=== PATIENT | female | born 1980 | race Two or more races ===

== ENCOUNTER 2024-09-29 06:57 | Emergency (ER) | payer MEDICAID, SELFPAY ==
[2024-09-29 06:58] VITALS: BMI 30.7
[2024-09-29 07:05] VITALS: BP 115/80; PULSE 80; RESP 18; TEMP 36.5; O2SAT 98
[2024-09-29] MEDS: KETOROLAC INJ 60 MG/2 ML VIAL 30 MG IM (07:37)
--- NOTE | 2024-09-29 07:38 | EDNOTE_ITS ---
ED Abdominal Pain RME/HPI General Chief Complaint: Abdominal Pain Stated complaint: RLQ ABD PAIN Time seen by provider: 09/29/24 07:24 Arrival date/time: 09/29/24 06:57 Limitations: no limitations RME / HPI RME / HPI narrative: 44-year-old female presents to urgent care with complaint of right lower quadrant pain that radiates to the mid axillary line. This began 2 days ago. Denies vomiting and denies diarrhea. Also complains of pain upon urination. MD complaint: abdominal pain Onset (ago): day(s) (2 days) Consistency: intermittent Related Data Previous Rx's ?Medication ?Instructions ?Recorded acetaminophen 325 mg capsule 975 mg (3 x 325 mg) PO Q6 H PRN 12/20/19 pain #30 caps doxycycline monohydrate 100 mg 100 mg PO BID #20 tabs 09/29/24 tablet doxycycline monohydrate 100 mg 100 mg PO BID #20 tabs 09/29/24 tablet phenazopyridine 200 mg tablet 200 mg PO TID 6 doses #6 tabs 09/29/24 (Pyridium) phenazopyridine 200 mg tablet 200 mg PO TID 6 doses #6 tabs 09/29/24 (Pyridium) phenazopyridine 200 mg tablet 200 mg PO TID BURNING UP ON 09/29/24 (Pyridium) URINATION 6 doses #6 tabs Allergies Allergy/AdvReac Type Severity Reaction Status Date / Time Penicillins Allergy Unknown UNKNOWN Verified 09/29/24 07:01 PER PT Review of Systems Constitutional Constitutional: Reports system reviewed and no additional complaints, except as documented Eyes Eyes: Reports system reviewed and no additional complaints, except as documented, Denies dry eyes, Denies exophthalmos and Reports floaters Cardiovascular Cardiovascular: Denies chest pain with activity and Denies claudication ED Exam Narrative Physical exam: The abdomen is tender to palpation at the right lower quadrant. Negative for rebound tenderness. Patient does not guard and there is no apparent masses in the abdomen. Patient is able to hop up and down to 5 times without a grimace or pain. Upon hopping patient complains of pain she describes as dull to the right lower quadrant. General Limitations: Present no limitations General appearance: Present alert and in no apparent distress Head Head exam: Present atraumatic Eye Eye exam: Present normal appearance and EOMI ENT ENT exam: Present normal exam, normal oropharynx and mucous membranes moist Neck Neck exam: Present normal inspection, full ROM and trachea midline Chest Chest inspection: Present normal inspection and symmetric chest wall rise Respiratory Respiratory exam: Present normal lung sounds bilaterally Cardiovascular Cardiovascular exam: Present regular rate, normal rhythm and normal heart sounds Abdominal Exam Abdominal exam: Present soft, tenderness (Mildly tender is the right lower quadrant negative for rebound tenderness) and normal bowel sounds Extremities Exam Extremities exam: Present normal inspection and full ROM Back Exam Back exam: Present normal inspection and full ROM Neurological Exam Neurological exam: Present alert and oriented X3 Psychiatric Psychiatric exam: Present normal affect and normal mood Skin Skin exam: Present warm, dry, intact and normal color Course Course Course Narrative: CBC, CMP, hCG qualitative, lipase, urinalysis, Toradol 30 mg IM. Quality Measures none Orders Category Date Time Status CBC Stat Lab 09/29/24 08:16 Completed Comprehensive Metabolic Panel Stat Lab 09/29/24 08:16 Completed HCG Qualitative,Urine Stat Lab 09/29/24 07:36 Completed Lipase Stat Lab 09/29/24 08:16 Completed Urinalysis Stat Lab 09/29/24 07:36 Completed Ketorolac Inj [Toradol Inj] Med 09/29/24 07:19 Discontinued 30 mg IM X1 ONE cefTRIAXone [Rocephin] 1,000 mg Med 09/29/24 09:33 Discontinued Lidocaine 1% 20 ml [Xylocaine 1% 20 ML] 2.1 ml IM X1 Done Vital Signs Vital signs: Vital Signs Temperature 97.7 F 09/29/24 07:05 Pulse Rate 80 09/29/24 07:05 Respiratory Rate 18 09/29/24 07:05 Blood Pressure 115/80 09/29/24 07:05 Pulse Oximetry (%) 98 09/29/24 07:05 Oxygen Delivery Method Room Air 09/29/24 07:05 Pulse ox is 98% room air Abdominal Pain MDM MDM Narrative MDM Narrative:: Patient has a urinary tract infection and she will be given a gram of Rocephin. She will then be discharged in no apparent distress. Patient is to follow-up primary care physician within 1 week of today's date or sooner if worse. Patient will have cephalexin sent to the pharmacy of her choice as well as Pyridium. Patient data External records reviewed:: Other (specify) (N/A) Clinical information provided by:: patient Social determinants that could affect healthcare access:: none (N/A) Patient has the following chronic illnesses:: No chronic illness How is presenting disease/condition affected by chronic disease/condition?: no chronic disease Evaluation data The following diagnostics were reviewed and interpreted by me:: lab results (Urinalysis demonstrates a urinary tract infection) Lab and/or radiology exams considered but not ordered:: N/A Interpretation Summary: UTI Medications / Prescriptions Medications or Prescriptions considered but not ordered:: N/A Medication administrations:: Medication Administration History Discontinued Medications Ceftriaxone Sodium 1,000 mg/ (Lidocaine HCl 2.1 ml) 0 mg IM X1 ONE Stop: 09/29/24 09:34 Last Admin: 09/29/24 09:48 Dose: 1,000 mg Documented By: SHELBY Ketorolac Tromethamine (Ketorolac Inj 60 Mg/2 Ml Vial) 30 mg IM X1 ONE Stop: 09/29/24 07:20 Last Admin: 09/29/24 07:37 Dose: 30 mg Documented By: EF DONE Consultations Consultation(s) initiated? (list below): No Diagnosis Differential diagnosis abdominal pain: acute appendicitis, calculus of kidney and gastroenteritis Most likely diagnosis given after review of the tests above:: Urinary tract infection Admission Indicated Admission indicated?: not indicated Explain why admission is indicated or not indicated:: N/A Admission Request Was there a request for admission?: No Disposition Plan Disposition Plan: Discharge Discharge Attestation Discharge Attestation: The patient and all family members were given an opportunity to ask questions and understood the discharge instructions. Discharge instructions specifically effects, indications for sooner follow up or return to the emergency department, and the expected course of current diagnosis. Patient condition: Stable Discharge Plan Plan Patient Disposition: HOME (Self Care) Discharge Disposition comment: Discharge in no apparent distress Patient condition on transfer: Stable Prescriptions/Referrals Prescriptions/Med Rec: New doxycycline monohydrate 100 mg tablet 100 mg PO BID Qty: 20 0RF phenazopyridine [Pyridium] 200 mg tablet 200 mg PO TID Qty: 6 0RF doxycycline monohydrate 100 mg tablet 100 mg PO BID Qty: 20 0RF phenazopyridine [Pyridium] 200 mg tablet 200 mg PO TID Qty: 6 0RF phenazopyridine [Pyridium] 200 mg tablet 200 mg PO TID Qty: 6 0RF No Action acetaminophen 325 mg capsule 975 mg PO Q6H PRN (Reason: pain) Qty: 30 0RF Referrals: Beni Wren MD [Primary Care Provider] - In 1 week Problem List Clinical Impression: Urinary tract infection Patient/Caregiver Discharge Instructions Discharge Activity: activity as tolerated Print Language: Malay Stand Alone Forms: [employer] Award Info., Work/School Release, Patient Portal Info Letter PA/AUDIO NARRATOR Supervising Physician PA/AUDIO NARRATOR Supervising Physician: GRABIEL
[2024-09-29 08:12] LABS: Collection Type, Urine Clean Catch
[2024-09-29 08:29] LABS: Basophils # (Auto) 0.0 Thou/mm3 (0.0-0.2); Basophils % (Auto) 0 % (0-2.5); Eosinophils # (Auto) 0.1 Thou/mm3 (0.0-0.5); Eosinophils % (Auto) 1 % (0-10); Hematocrit 38.5 % (36.0-46.0); Hemoglobin 13.3 g/dL (12.0-16.0); Immature Granulocytes Auto 0.05 Thou/mm3 (0.00-0.00); Lymphocytes # (Auto) 1.9 Thou/mm3 (1.0-4.8); Lymphocytes % (Auto) 15 % (10-50); Mean Corpuscular HGB Conc 34.5 g/dl (31.0-37.0); Mean Corpuscular Hemoglobin 30.2 pg (25.0-35.0); Mean Corpuscular Volume 88 fL (80-100); Monocytes # (Auto) 1.1 Thou/mm3 (0.0-0.8); Monocytes % (Auto) 9 % (0-12); Neutrophils # (Auto) 9.4 Thou/mm3 (1.8-7.7); Neutrophils % (Auto) 75 % (37-80); Nucleated Red Blood Cell # 0.00 Thou/mm3 (0.00-0.00); Nucleated Red Blood Cell % 0 /100 WBC (0); Platelet Count 175 Thou/mm3 (140-440); RDW Standard Deviation 42.6 fL (36.4-46.3); Red Blood Count 4.40 Miln/mm3 (4.00-5.20); White Blood Count 12.6 Thou/mm3 (3.6-11.0)
[2024-09-29 08:30] LABS: Bilirubin,Urine Negative (Negative); Blood,Urine Trace (Negative); Budding Yeast,Urine Present; Color,Urine Lt-Yellow (Lt Yel-Yel); Glucose, Urine Negative (Negative); HCG Qualitative,Urine Negative; Ketones,Urine Negative (Negative); Leukocyte Esterase,Urine Positive (Negative); Nitrite,Urine Negative (Negative); PH,Urine 7.0 (5.0-7.0); Protein,Urine Trace (Neg - Trace); RBC,Urine 24 /hpf (0-3); Specific Gravity,Urine 1.013 (1.001-1.035); Squamous Epithelial Cell,Urine 1 /hpf (0-5); Urobilinogen,Urine Negative mg/dL (0.0-1.0); WBC,Urine 297 /hpf (0-5)
[2024-09-29 08:53] LABS: Alanine Aminotransferase 14 U/L (10-49); Albumin, Serum 4.1 gm/dL (3.5-5.0); Albumin/Globulin Ratio 1.4 (1.2-2.2); Alkaline Phosphatase 72 U/L (46-116); Anion Gap 9 (7-16); Aspartate Amino Transferase 24 U/L (0-34); BUN/Creatinine Ratio 16 Ratio (12-20); Bilirubin,Total 1.0 mg/dL (0.3-1.2); Blood Urea Nitrogen 18 mg/dL (9-23); Calcium 9.2 mg/dL (8.3-10.6); Calcium (Corrected) 9.2 mg/dL (8.5-10.1); Carbon Dioxide 27.0 mMol/L (20.0-31.0); Chloride 103 mMol/L (98-107); Creatinine (Component) 1.1 mg/dL (0.6-1.3); Estimated Creatinine Clearance 72.2 mL/min (>60); Globulin 3.0 gm/dL (2.3-3.5); Glucose 100 mg/dL (74-106); Lipase 47 U/L (12-53); Osmolality,Calculated 279 (275-295); Potassium 4.6 mMol/L (3.4-5.1); Sodium 139 mMol/L (136-145); Total Protein 7.1 gm/dL (5.7-8.2); eGFR > 60 See Note
[2024-09-29 08:55] LABS: Clarity,Urine Hazy (Clear/Hazy)
[2024-09-29] MEDS: cefTRIAXone 1,000 MG, LIDOCAINE 1% 20 ML 2.1 ML IM (09:48)
== END 2024-09-29 09:55 | disposition home or self-care (01) ==
PROVIDERS: Emergency Provider Physician Assistant; PCP Family Medicine
DX: N39.0 Urinary tract infection, site not specified (principal)
CPT/HCPCS: 36415; 80053; 81001; 81025; 83690; 85025; 96372; 99283; J0696; J1885; J3490

== ENCOUNTER 2025-03-01 16:30 | Emergency (ER) | payer MEDICAID, SELFPAY ==
--- NOTE | 2025-03-01 16:34 | EKG_ITS ---
[facility] Test Date: 2025-03-01 Pat Name: DAVONTE GUSMAN Department: Room: - Gender: Female Linotyper: : 1980 Requested By: Shaw Coley Order Number: [id number] Reading MD: Shaw Coley Measurements Intervals [place] Rate: 85 P: 22 NV: 138 QRS: 10 QRSD: 87 T: 26 QT: 327 QTc: 389 Interpretive Statements SINUS RHYTHM Compared to ECG 05/06/2019 17:14:45 No significant changes /store/S0/[id number].pdf
[2025-03-01 16:40] VITALS: BP 132/91; PULSE 87; RESP 19; TEMP 36.7; O2SAT 97; BMI 32.3
--- NOTE | 2025-03-01 16:48 | XR_ITS ---
EXAMINATION: PA lateral chest 2 views TECHNIQUE: Upright PA lateral chest 2 views Date and time: March 01, 2025, 1701 hours, comparison May 06, 2019 INDICATIONS: Chest pain beginning last night. FINDINGS: Normal heart size Lungs are clear. The osseous structures are intact IMPRESSION: No active disease
--- NOTE | 2025-03-01 16:48 | PD.EDRME ---
Rapid Medical Screening Exam RME Arrival date/time: 03/01/25 16:30 44-year-old female presents to the Emergency Department for complaints of chest pain since yesterday Chief Complaint: Chest Pain Vital signs: Vital Signs Temperature 98.0 F 03/01/25 16:40 Pulse Rate 87 03/01/25 16:40 Respiratory Rate 19 03/01/25 16:40 Blood Pressure 132/91 H 03/01/25 16:40 Pulse Oximetry (%) 97 03/01/25 16:40 Oxygen Delivery Method Room Air 03/01/25 16:40 Vital signs reviewed by provider: Yes Exam: On exam patient well-appearing does not appear ill or toxic no acute distress Clinical Impression: Lab work imaging and EKG obtained
[2025-03-01 17:28] LABS: Basophils # (Auto) 0.0 Thou/mm3 (0.0-0.2); Basophils % (Auto) 0 % (0-2.5); Eosinophils # (Auto) 0.3 Thou/mm3 (0.0-0.5); Eosinophils % (Auto) 3 % (0-10); Hematocrit 37.7 % (36.0-46.0); Hemoglobin 12.5 g/dL (12.0-16.0); Immature Granulocytes Auto 0.02 Thou/mm3 (0.00-0.00); Lymphocytes # (Auto) 2.5 Thou/mm3 (1.0-4.8); Lymphocytes % (Auto) 29 % (10-50); Mean Corpuscular HGB Conc 33.2 g/dl (31.0-37.0); Mean Corpuscular Hemoglobin 29.6 pg (25.0-35.0); Mean Corpuscular Volume 89 fL (80-100); Monocytes # (Auto) 0.9 Thou/mm3 (0.0-0.8); Monocytes % (Auto) 10 % (0-12); Neutrophils # (Auto) 5.0 Thou/mm3 (1.8-7.7); Neutrophils % (Auto) 58 % (37-80); Nucleated Red Blood Cell # 0.00 Thou/mm3 (0.00-0.00); Nucleated Red Blood Cell % 0 /100 WBC (0); Platelet Count 224 Thou/mm3 (140-440); RDW Standard Deviation 43.0 fL (36.4-46.3); Red Blood Count 4.22 Miln/mm3 (4.00-5.20); White Blood Count 8.7 Thou/mm3 (3.6-11.0)
[2025-03-01 17:48] LABS: Alanine Aminotransferase 19 U/L (10-49); Albumin, Serum 4.2 gm/dL (3.5-5.0); Albumin/Globulin Ratio 1.4 (1.2-2.2); Alkaline Phosphatase 75 U/L (46-116); Anion Gap 10 (7-16); Aspartate Amino Transferase 25 U/L (0-34); BUN/Creatinine Ratio 13 Ratio (12-20); Bilirubin,Total 0.5 mg/dL (0.3-1.2); Blood Urea Nitrogen 15 mg/dL (9-23); Calcium 8.7 mg/dL (8.3-10.6); Calcium (Corrected) 8.7 mg/dL (8.5-10.1); Carbon Dioxide 25.9 mMol/L (20.0-31.0); Chloride 106 mMol/L (98-107); Creatinine (Component) 1.2 mg/dL (0.6-1.3); Estimated Creatinine Clearance 67.9 mL/min (>60); Globulin 3.1 gm/dL (2.3-3.5); Glucose 91 mg/dL (74-106); Lipase 63 U/L (12-53); Osmolality,Calculated 283 (275-295); Potassium 4.3 mMol/L (3.4-5.1); Sodium 142 mMol/L (136-145); Total Protein 7.3 gm/dL (5.7-8.2); Troponin I < 0.002 ng/mL (0.0-0.045); eGFR 57 See Note
[2025-03-01 18:21] LABS: HCG,Qualitative Serum Negative
--- NOTE | 2025-03-01 19:02 | EDNOTE_ITS ---
ED Chest Pain RME/HPI General Chief Complaint: Chest Pain Stated Complaint: H/A CHEST PAIN SINCE LAST PM Time Seen by Provider: 03/01/25 17:26 Arrival date/time: 03/01/25 16:30 RME / HPI RME / HPI narrative: 03/01/25 16:30 44-year-old female presents to the Emergency Department for complaints of chest pain since yesterday See [facility] for Dr. South's HPI Documentation. Exam: On exam patient well-appearing does not appear ill or toxic no acute distress Impression: Lab work imaging and EKG obtained Related Data Previous Rx's ?Medication ?Instructions ?Recorded acetaminophen 325 mg capsule 975 mg (3 x 325 mg) PO Q6 H PRN 12/20/19 pain #30 caps doxycycline monohydrate 100 mg 100 mg PO BID #20 tabs 09/29/24 tablet doxycycline monohydrate 100 mg 100 mg PO BID #20 tabs 09/29/24 tablet phenazopyridine 200 mg tablet 200 mg PO TID 6 doses #6 tabs 09/29/24 (Pyridium) phenazopyridine 200 mg tablet 200 mg PO TID 6 doses #6 tabs 09/29/24 (Pyridium) phenazopyridine 200 mg tablet 200 mg PO TID BURNING UP ON 09/29/24 (Pyridium) URINATION 6 doses #6 tabs Allergies Allergy/AdvReac Type Severity Reaction Status Date / Time Penicillins Allergy Unknown UNKNOWN Verified 03/01/25 16:32 PER PT Review of Systems Review of Systems Systems Reviewed: All systems reviewed, normal except as documented ED Exam Narrative Physical exam: See [facility] for Dr. South's Physical Exam Documentation. Course Quality Measures none Orders Category Date Time Status EKG (ED ONLY) *Do not use* NOW Care 03/01/25 16:34 Completed EKG (ED Only) Stat Exams 03/01/25 16:34 Draft XR chest 2V Stat Exams 03/01/25 16:48 Completed CBC Stat Lab 03/01/25 17:10 Completed Comprehensive Metabolic Panel Stat Lab 03/01/25 17:10 Completed HCG,Qualitative Serum Stat Lab 03/01/25 17:10 Completed Lipase Stat Lab 03/01/25 17:10 Completed Troponin I Stat Lab 03/01/25 17:10 Completed Vital Signs Vital signs: Vital Signs Temperature 98.0 F 03/01/25 16:40 Pulse Rate 87 03/01/25 16:40 Respiratory Rate 19 03/01/25 16:40 Blood Pressure 132/91 H 03/01/25 16:40 Pulse Oximetry (%) 97 03/01/25 16:40 Oxygen Delivery Method Room Air 03/01/25 16:40 Chest Pain MDM Narrative MDM Narrative:: This section includes all my notes and documentations, including HPI, PE, and ED course. Volodymyr South MD HPI: 44-year-old female here with left-sided chest pain and shoulder pain since yesterday after cleaning. Worse with left shoulder ROM. No other complaints. ROS: All negative except as documented in HPI. Physical Exam: General: Alert and oriented. No acute distress when remaining still. Eyes: Conjunctivae and lids clear. ENT: No nasal congestion. Neck: Supple. Heart: RRR. Lungs: No respiratory distress. Good air movement. No rhonchi, wheezing, rales. Chest: Palpation anteriorly left of the sternum reproduces her pain. Abdomen: Soft and nontender. Skin: Warm and dry. Neuro: Alert and oriented X 3. I reviewed all diagnostic test results: My interpretation of the EKG is NSR (85 bpm) with no ST-T changes. My interpretation of the chest x-ray is: NAD. Blood tests unremarkable. At this point, diagnoses include: Chest Wall Pain Recommended more outpatient cardiac workup. Based on my best medical judgment, made decision no further evaluation or treatment indicated at this time. Patient understands and agrees to the discharge instructions customized and printed, see below. Discharge instructions from Dr. South: 1. After extensive evaluation, there is no life-threatening condition.? Such as heart attack or pneumothorax (collapsed lung). 2. Your pain is originating from the chest wall and not from an internal organ.? The chest wall has many joints and muscles between the ribs, so sprains and strains are common.?? 3. Apply ice or heat if helpful.? Tylenol/ibuprofen as needed. 4. See a private doctor this week for recheck. To make sure there is no serious underlying heart condition, ask to help you get more tests for your heart that cannot be done here in the ER.? Such as Holter Monitor (cardiac monitoring at home from a day to even a month), heart stress test (on treadmill or with medication), echocardiogram (imaging of your heart structures), heart catherization (checking for blockages in your heart arteries), and a referral to see a Glassware Maker Demonstrator.? 5. Seek immediate medical care with worsening or with any concerns.?? Volodymyr South MD Patient data External records reviewed:: [facility] previous records (Reviewed prior ED records from 09/29/24. Patient was seen for Urinary tract infection.) Clinical information provided by:: patient Social determinants that could affect healthcare access:: none Patient has the following chronic illnesses:: None reported. How is presenting disease/condition affected by chronic disease/condition?: no chronic disease Evaluation data The following diagnostics were reviewed and interpreted by me:: lab results, radiology exam(s) and EKG tracing(s) Lab and/or radiology exams considered but not ordered:: None Interpretation Summary: I reviewed all diagnostic test results: My interpretation of the EKG is NSR (85 bpm) with no ST-T changes. My interpretation of the chest x-ray is: NAD. Blood tests unremarkable. Medications / Prescriptions Medications or Prescriptions considered but not ordered:: Noen Medication administrations:: None Consultations Consultation(s) initiated? (list below): No Diagnosis Chest Pain Differential Diagnosis: pneumothorax, stable angina, unstable angina pectoris, atypical chest pain, st elevation myocardial infarction, costochondritis and chest pain Most likely diagnosis given after review of the tests above:: Chest Wall Pain Admission Indicated Admission indicated?: not indicated Explain why admission is indicated or not indicated:: With no condition needing emergent intervention, there was no indication for admission. Admission Request Was there a request for admission?: No Disposition Plan Disposition Plan: Discharge Discharge Attestation Discharge Attestation: The patient and all family members were given an opportunity to ask questions and understood the discharge instructions. Discharge instructions specifically effects, indications for sooner follow up or return to the emergency department, and the expected course of current diagnosis. Patient condition: Stable Discharge Plan Plan Patient Disposition: HOME (Self Care) Prescriptions/Referrals Prescriptions/Med Rec: No Action acetaminophen 325 mg capsule 975 mg PO Q6H PRN (Reason: pain) Qty: 30 0RF doxycycline monohydrate 100 mg tablet 100 mg PO BID Qty: 20 0RF phenazopyridine [Pyridium] 200 mg tablet 200 mg PO TID Qty: 6 0RF doxycycline monohydrate 100 mg tablet 100 mg PO BID Qty: 20 0RF phenazopyridine [Pyridium] 200 mg tablet 200 mg PO TID Qty: 6 0RF phenazopyridine [Pyridium] 200 mg tablet 200 mg PO TID Qty: 6 0RF Referrals: Beni Wren MD [Primary Care Provider, Family Practice] - In 1 week Problem List Clinical Impression: Chest wall pain Patient/Caregiver Discharge Instructions Discharge Activity: activity as tolerated Education Materials: ED Chest Wall Strain (Child) Additional Instructions: Discharge instructions from Dr. South: 1. After extensive evaluation, there is no life-threatening condition.? Such as heart attack or pneumothorax (collapsed lung). 2. Your pain is originating from the chest wall and not from an internal organ.? The chest wall has many joints and muscles between the ribs, so sprains and strains are common.?? 3. Apply ice or heat if helpful.? Tylenol/ibuprofen as needed. 4. See a private doctor this week for recheck. To make sure there is no serious underlying heart condition, ask to help you get more tests for your heart that cannot be done here in the ER.? Such as Holter Monitor (cardiac monitoring at home from a day to even a month), heart stress test (on treadmill or with medication), echocardiogram (imaging of your heart structures), heart catherization (checking for blockages in your heart arteries), and a referral to see a Glassware Maker Demonstrator.? 5. Seek immediate medical care with worsening or with any concerns.?? Print Language: Mohawk Stand Alone Forms: [employer] Award Info., Patient Portal Info Letter
== END 2025-03-01 19:11 | disposition home or self-care (01) ==
PROVIDERS: Nurse Practitioner Primary Care; Emergency Provider Emergency Medicine; PCP Family Medicine
DX: R07.89 Other chest pain (principal)
CPT/HCPCS: 36415; 71046; 80053; 83690; 84484; 84703; 85025; 93005; 99283